=== PATIENT | male | born 1975 | race Caucasian/White ===

== ENCOUNTER 2016-09-21 05:14 | Emergency (ER) | payer BC, OTHER ==
[~2016-09-21] VITALS: Ht 177.8 cm; Wt 82.6 kg
--- NOTE | 2016-09-21 06:08 | NUR ---
PT AMBULATED TO BED #4 WITH A C/O ANXIETY AFTER TAKING AN OTC IRON PILL. PT HAD DIARRHEA X1 AND HAD A PANIC ATTACK. PT AMBULATED TO BED #4 WITH A STEADY GAIT. VSS.
--- NOTE | 2016-09-21 06:30 | NUR ---
Patient discharged to home in stable condition. Written and verbal after care instructions given. Patient verbalizes understanding of instruction. PT AMBULATED OUT WITH A STEADY GAIT. VSS.
[2016-09-21 06:32] VITALS: BP 139/95
== END 2016-09-21 06:33 | disposition home or self-care (01) ==
LOC: ER 05:15
DX: R20.9 Unspecified disturbances of skin sensation (principal); F41.9 Anxiety disorder, unspecified
CPT/HCPCS: 82962; 99284; A4606; Z7610